=== PATIENT | female | born 1955 | race Hispanic/Latino ===

== ENCOUNTER 2022-09-28 21:10 | Inpatient (IN) | payer OTHER ==
[~2022-09-28] VITALS: Ht 154.9 cm; Wt 63.5 kg
[2022-09-28] MEDS ORDERED: MORPHINE 2 MG SYG IVP SCH (21:30)
[2022-09-28 21:43] LABS: BASOPHILS % (AUTO) 0.7 % (0.0-5.0); EOSINOPHILS % (AUTO) 2.6 % (0.0-8.0); HEMATOCRIT 33.6 % (36-48); LYMPHOCYTES % (AUTO) 43.1 % (21.0-51.0); MEAN CORPUSCULAR HEMOGLOBIN 29.7 pg (27.0-33.0); MEAN CORPUSCULAR HGB CONC 34.2 g/dL (32.0-36.0); MEAN CORPUSCULAR VOLUME 86.8 fL (79-99); MONOCYTES % (AUTO) 7.9 % (3.0-13.0); NEUTROPHILS % (AUTO) 45.6 % (40.0-77.0); PLATELET COUNT (AUTO) 191 K/uL (130-400); RED BLOOD CELL COUNT(AUTO) 3.87 MIL/uL (4.00-5.50); RED CELL DISTRIBUTION WIDTH 12.4 % (11.0-15.5); WHITE BLOOD COUNT (AUTO) 7.6 K/uL (4.8-10.8)
[2022-09-28] MEDS ORDERED: MORPHINE 2 MG SYG ONE (21:45)
[2022-09-28 21:53] LABS: CREATININE 1.2 mg/dL (0.5-1.5); POTASSIUM 3.7 mmol/L (3.5-5.1)
[2022-09-28 21:56] LABS: INR 0.93 (0.85-1.15); PROTHROMBIN TIME 10.5 SEC (9.6-11.6)
[2022-09-28 21:56] LABS: APPEARANCE,URINE CLEAR (CLEAR); BILIRUBIN,URINE NEGATIVE (NEGATIVE); COLOR,URINE YELLOW (YELLOW); GLUCOSE, URINE (UA) TRACE mg/dL (NEGATIVE); KETONES,URINE NEGATIVE (NEGATIVE); LEUKOCYTE ESTERASE ,URINE NEGATIVE Leu/uL (NEGATIVE); NITRATE,URINE NEGATIVE (NEGATIVE); OCCULT BLOOD,URINE NEGATIVE (NEGATIVE); PH,URINE 5.5 (5.0-8.0); PROTEIN,URINE 50 mg/dL (NEGATIVE); UROBILINOGEN,URINE 0.2 mg/dL (0.2-1.0)
[2022-09-28 21:57] LABS: ALBUMIN 3.6 g/dL (3.5-5.0); TOTAL PROTEIN, SERUM 7.4 g/dL (6.0-8.3)
[2022-09-28 21:58] LABS: PARTIAL THROMBOPLASTIN TIME 24.9 SEC (26.3-35.5)
[2022-09-28 21:58] LABS: BACTERIA,URINE FEW /HPF (None Seen); MUCUS,URINE FEW LPF (None Seen); RBC,URINE 0-1 /HPF (0-1); SQUAMOUS EPITHELIAL CELL,UR FEW /HPF (0-2)
[2022-09-28 22:03] LABS: B-TYPE NATRIURETIC PEPTIDE 62 pg/mL (0-100)
[2022-09-28] MEDS ORDERED: NITR.4 SL (23:01)
[2022-09-28] MEDS ORDERED: IBUP-1493 PO (23:01)
[2022-09-28] MEDS ORDERED: HYDRALAZINE 20MG/ML VIAL IV ONE (23:30)
[2022-09-29] VITALS (8 sets, daily range): BP systolic 114–172; BP diastolic 50–78; PULSE 54–70; RESP 17–20; O2SAT 95–98
[2022-09-29] MEDS ORDERED: LABETALOL 20MG VIAL IV ONE
[2022-09-29] MEDS ORDERED: IOHEXOL 350 MG/ML 100ML INFUS..BTL IV ONE (00:25)
[2022-09-29] MEDS ORDERED: INSULIN HUMULIN R 100 UNIT/ML 3ML SQ PRN (01:00)
[2022-09-29] MEDS ORDERED: ONDANSETRON 4MG INJ IVP PRN (01:00)
[2022-09-29] MEDS: ACETAMINOPHEN 325 MG TAB PO PRN ×2 (01:37→09:47)
[2022-09-29 05:45] LABS: BASOPHILS % (AUTO) 0.5 % (0.0-5.0); EOSINOPHILS % (AUTO) 0.6 % (0.0-8.0); HEMATOCRIT 34.6 % (36-48); LYMPHOCYTES % (AUTO) 26.2 % (21.0-51.0); MEAN CORPUSCULAR HEMOGLOBIN 29.4 pg (27.0-33.0); MEAN CORPUSCULAR HGB CONC 34.1 g/dL (32.0-36.0); MEAN CORPUSCULAR VOLUME 86.1 fL (79-99); MONOCYTES % (AUTO) 5.2 % (3.0-13.0); NEUTROPHILS % (AUTO) 67.2 % (40.0-77.0); PLATELET COUNT (AUTO) 185 K/uL (130-400); RED BLOOD CELL COUNT(AUTO) 4.02 MIL/uL (4.00-5.50); RED CELL DISTRIBUTION WIDTH 12.5 % (11.0-15.5); WHITE BLOOD COUNT (AUTO) 8.7 K/uL (4.8-10.8)
[2022-09-29 06:03] LABS: HEMOGLOBIN A1C 9.3 % (4.0-6.0)
[2022-09-29 06:15] LABS: CREATININE 1.1 mg/dL (0.5-1.5); MAGNESIUM 1.3 mg/dL (1.80-2.40); POTASSIUM 3.7 mmol/L (3.5-5.1)
[2022-09-29] MEDS: INSULIN HUMULIN R 100 UNIT/ML 3ML SQ SCH ×4 (06:37→21:23)
[2022-09-29] MEDS ORDERED: POTASSIUM CHLORIDE 20MEQ/100ML 100 ML IV PRN (09:00)
[2022-09-29] MEDS ORDERED: POTASSIUM CHLORIDE 10% ELIXIR 20 MEQ/15 ML UDCUP PO PRN (09:00)
[2022-09-29] MEDS ORDERED: MAGNESIUM 2GM PREMIX 50ML 50 ML IV PRN (09:00)
[2022-09-29] MEDS: METOPROLOL TARTRATE 25 MG TAB PO SCH ×2 (09:47→21:22)
[2022-09-29] MEDS: ASPIRIN 81 MG EC TAB PO SCH (09:48)
[2022-09-29] MEDS: KCL 20 MEQ ERTAB PO PRN ×2 (09:48→16:30)
[2022-09-29] MEDS: LOSARTAN 50 MG TABLET PO SCH (09:48)
[2022-09-29] MEDS: ENOXAPARIN SODIUM 40 MG/0.4 ML SYRINGE SQ SCH (09:50)
[2022-09-29] MEDS ORDERED: KETOROLAC 15MG/ML VIAL (15MG/ML) IV ONE (10:00)
[2022-09-29] MEDS: HYDRALAZINE 20MG/ML VIAL IV PRN (16:25)
[2022-09-30] MEDS ORDERED: LISI20TA24 PO (00:06)
[2022-09-30] MEDS ORDERED: METF-446 PO (00:06)
[2022-09-30] MEDS ORDERED: FAMO20TA8 PO (00:06)
[2022-09-30] MEDS ORDERED: DOCU-116 PO (00:06)
[2022-09-30] MEDS ORDERED: GABA-529 PO (00:06)
[2022-09-30] MEDS ORDERED: CARV6.25 PO (00:06)
[2022-09-30] MEDS ORDERED: CLOP-31 PO (00:06)
[2022-09-30] MEDS ORDERED: HYDR12.54 PO (00:06)
[2022-09-30] MEDS ORDERED: ROSU10TA28 PO (00:06)
[2022-09-30 03:09] VITALS: BP 137/72; PULSE 61; RESP 20
[2022-09-30] MEDS: INSULIN HUMULIN R 100 UNIT/ML 3ML SQ SCH ×4 (06:28→20:44)
[2022-09-30 08:00] VITALS: BP 125/92; PULSE 69; RESP 16
[2022-09-30] MEDS: LOSARTAN 50 MG TABLET PO SCH (09:57)
[2022-09-30] MEDS: CARVEDILOL 6.25 MG TABLET PO SCH ×2 (09:57→20:02)
[2022-09-30] MEDS: ASPIRIN 81 MG EC TAB PO SCH (09:57)
[2022-09-30] MEDS: ENOXAPARIN SODIUM 40 MG/0.4 ML SYRINGE SQ SCH (09:58)
[2022-09-30 11:00] VITALS: BP 139/61; PULSE 60; RESP 16
[2022-09-30] MEDS: ACETAMINOPHEN 325 MG TAB PO PRN (11:42)
[2022-09-30 16:00] VITALS: BP 160/70; PULSE 59; RESP 16
[2022-09-30 19:20] VITALS: O2SAT 99
[2022-09-30] MEDS: HYDRALAZINE 20MG/ML VIAL IV PRN (20:43)
[2022-09-30 20:46] VITALS: BP 190/86; PULSE 60; RESP 18
[2022-10-01] VITALS (7 sets, daily range): BP systolic 126–158; BP diastolic 50–69; PULSE 59–73; RESP 16–18; O2SAT 99
[2022-10-01] MEDS: INSULIN HUMULIN R 100 UNIT/ML 3ML SQ SCH ×4 (06:05→20:30)
[2022-10-01 06:19] LABS: BASOPHILS % (AUTO) 0.9 % (0.0-5.0); EOSINOPHILS % (AUTO) 2.7 % (0.0-8.0); HEMATOCRIT 35.8 % (36-48); LYMPHOCYTES % (AUTO) 35.9 % (21.0-51.0); MEAN CORPUSCULAR HEMOGLOBIN 29.2 pg (27.0-33.0); MEAN CORPUSCULAR HGB CONC 33.2 g/dL (32.0-36.0); MONOCYTES % (AUTO) 7.1 % (3.0-13.0); NEUTROPHILS % (AUTO) 53.3 % (40.0-77.0); PLATELET COUNT (AUTO) 189 K/uL (130-400); RED BLOOD CELL COUNT(AUTO) 4.07 MIL/uL (4.00-5.50); RED CELL DISTRIBUTION WIDTH 12.6 % (11.0-15.5)
[2022-10-01] MEDS: REGADENOSON 0.4 MG/5 ML PF SYG IVP SCH ×2 (07:30→10:00)
[2022-10-01 08:43] LABS: POTASSIUM 4.3 mmol/L (3.5-5.1); TOTAL PROTEIN, SERUM 6.5 g/dL (6.0-8.3)
[2022-10-01] MEDS: ENOXAPARIN SODIUM 40 MG/0.4 ML SYRINGE SQ SCH (09:06)
[2022-10-01] MEDS: ASPIRIN 81 MG EC TAB PO SCH (09:06)
[2022-10-01] MEDS: CARVEDILOL 6.25 MG TABLET PO SCH ×2 (09:07→20:23)
[2022-10-01] MEDS: LOSARTAN 50 MG TABLET PO SCH (09:07)
[2022-10-02] VITALS: BP 141/62; PULSE 57; RESP 18
[2022-10-02 04:00] VITALS: BP 148/77; PULSE 67; RESP 17
[2022-10-02] MEDS: INSULIN HUMULIN R 100 UNIT/ML 3ML SQ SCH ×2 (05:31→12:03)
[2022-10-02 08:00] VITALS: BP 154/53; PULSE 62; RESP 16
[2022-10-02] MEDS: CARVEDILOL 6.25 MG TABLET PO SCH (08:57)
[2022-10-02] MEDS: ASPIRIN 81 MG EC TAB PO SCH (08:57)
[2022-10-02] MEDS: LOSARTAN 50 MG TABLET PO SCH (08:58)
[2022-10-02] MEDS: ENOXAPARIN SODIUM 40 MG/0.4 ML SYRINGE SQ SCH (08:58)
[2022-10-02 12:00] VITALS: BP 156/69; PULSE 59; RESP 16
[2022-10-02] MEDS ORDERED: LOSA50TA64 PO (13:33)
== END 2022-10-02 13:54 | disposition home or self-care (01) | DRG 305 ==
LOC: EDH 21:10 → EDHIP 09-29 00:52 → 4BH 09-29 05:25
PROVIDERS: ADMIT Internal Medicine Infectious Disease; ATTEND Internal Medicine Infectious Disease
DX: I16.1 Hypertensive emergency (principal); I69.354 Hemiplegia and hemiparesis following cerebral infarction affecting left non-dominant side; I25.119 Atherosclerotic heart disease of native coronary artery with unspecified angina pectoris; E11.9 Type 2 diabetes mellitus without complications; I10 Essential (primary) hypertension; E78.00 Pure hypercholesterolemia, unspecified; Z96.659 Presence of unspecified artificial knee joint; E83.42 Hypomagnesemia; Z82.49 Family history of ischemic heart disease and other diseases of the circulatory system; Z83.3 Family history of diabetes mellitus
CPT/HCPCS: 36415; 71045; 71270; 78452; 80048; 80053; 81001; 82550; 82948; 83036; 83735; 83874; 83880; 84484; 85025; 85378; 85610; 85730; 93005; 93017; 93306; 96374; A9500; G0378; J0360; J1650; J1815; J1885; J2270; J2785; J3475; J3490; Q9967

== ENCOUNTER 2023-04-02 16:37 | Emergency (ER) | payer OTHER ==
[~2023-04-02] VITALS: Ht 162.6 cm; Wt 68.0 kg
[~2023-04-02 16:37] MED LIST: CARV6.25 PO; CLOP-31 PO; DOCU-116 PO; FAMO20TA8 PO; GABA-529 PO; HYDR12.54 PO; LISI20TA24 PO; LOSA50TA64 PO; METF-446 PO; ROSU10TA28 PO
[2023-04-02] MEDS ORDERED: DIAZEPAM 5 MG/ML 2 ML SYG IVP ONE (17:00)
[2023-04-02] MEDS ORDERED: KETOROLAC 30MG VIAL (30MG/ML) IVP ONE (17:00)
[2023-04-02] MEDS ORDERED: METOCLOPRAMIDE 10 MG/2 ML VIAL IVP ONE (17:00)
[2023-04-02] MEDS ORDERED: FAMOTIDINE 20MG VIAL IV ONE (17:00)
[2023-04-02] MEDS ORDERED: 0.9%NACL 1000ML 1,000 ML IV ONE (17:00)
[2023-04-02 17:23] LABS: HEMATOCRIT 36.5 % (36-48); MEAN CORPUSCULAR HEMOGLOBIN 30.4 pg (27.0-33.0); MEAN CORPUSCULAR HGB CONC 35.1 g/dL (32.0-36.0); MEAN CORPUSCULAR VOLUME 86.7 fL (79-99); RED BLOOD CELL COUNT(AUTO) 4.21 MIL/uL (4.00-5.50); RED CELL DISTRIBUTION WIDTH 12.4 % (11.0-15.5); WHITE BLOOD COUNT (AUTO) 6.6 K/uL (4.8-10.8)
[2023-04-02 17:41] LABS: CREATININE 1.2 mg/dL (0.5-1.5); POTASSIUM 3.7 mmol/L (3.5-5.1)
[2023-04-02] MEDS ORDERED: INSULIN HUMULIN R 100 UNIT/ML 3ML IV ONE ×2 (18:30→19:30)
[2023-04-02 19:09] VITALS: BP 194/85; PULSE 60; RESP 18; O2SAT 100
== END 2023-04-02 19:12 | disposition home or self-care (01) ==
LOC: EDH 16:37
DX: R07.89 Other chest pain (principal); E86.0 Dehydration; E11.65 Type 2 diabetes mellitus with hyperglycemia; I10 Essential (primary) hypertension; F41.9 Anxiety disorder, unspecified; Z98.890 Other specified postprocedural states; Z79.899 Other long term (current) drug therapy; Z79.84 Long term (current) use of oral hypoglycemic drugs
CPT/HCPCS: 99284; 96374; 96375; 71045; 96361; 82550; 80048; 85027; 83605; 36415; 72040; 72170; J1815; J3490; J7030; J3360; J1885; J2765